=== PATIENT | female | born 1985 | race Two or more races ===

== ENCOUNTER 2016-06-10 18:37 | Emergency (ER) | payer MEDICAID, OTHER ==
[~2016-06-10] VITALS: Ht 160 cm; Wt 47.6 kg
[2016-06-10] MEDS ORDERED: SODIUM CHLORIDE 0.9% 1,000 ML IV ONE (19:47)
[2016-06-10] MEDS ORDERED: FAMOTIDINE (10MG/ML) 2ML VL IV ONE (20:00)
[2016-06-10 20:12] LABS: Basophils # (auto) 0 uL; Basophils % (auto) 0.4 % (0.0-2.0); Eosinophils # (auto) 0 uL; Eosinophils % (auto) 0.4 % (0.0-7.0); Hematocrit 42.5 % (36.0-46.0); Hemoglobin 14.1 g/dL (12.2-16.2); Lymphocytes # (auto) 1.4 uL; Lymphocytes % (auto) 14.2 % (10.0-50.0); Mean Corpuscular Hemoglobin 31.8 pg (28.0-32.0); Mean Corpuscular Hgb Conc. 33.2 g/dL (32.0-36.0); Mean Corpuscular Volume 95.9 fL (80.0-100.0); Mean Platelet Volume 8.6 fL (7.4-10.4); Monocytes # (auto) 0.5 uL; Monocytes % (auto) 5.4 % (0.0-12.0); Neutrophils % (auto) 79.6 % (37.0-80.0); Platelet Count (auto) 307 10^3/uL (140-450); Red Cell Distribution Width 15.4 % (11.6-16.0)
[2016-06-10 20:37] LABS: BUN/Creatinine Ratio 13.9; Calcium 8.8 mg/dL (8.5-10.1); Potassium 3.1 mmol/L (3.5-5.1)
[2016-06-10 20:40] LABS: Bilirubin, Total 0.3 mg/dL (0.2-1.0); Total Protein 7.1 g/dL (6.4-8.2)
[2016-06-10] MEDS ORDERED: ONDANSETRON HCL 4 MG/2 ML VIAL IV ONE (21:00)
[2016-06-10] MEDS ORDERED: PROMETHAZINE HCL 25 MG/ML 1ML IV ONE (23:45)
[2016-06-11 00:22] VITALS: BP 98/60
[2016-06-11] MEDS ORDERED: THIAMINE INJ 100 MG, MULTIPLE VITAMIN 10 ML, FOLIC ACID 1 MG, MAGNESIUM SULF SDV 50% 8 ... IV ONE ×5 (00:30)
== END 2016-06-11 00:30 | disposition home or self-care (01) ==
LOC: ER 18:40
DX: K29.00 Acute gastritis without bleeding (principal); F17.210 Nicotine dependence, cigarettes, uncomplicated; F12.10 Cannabis abuse, uncomplicated; F15.10 Other stimulant abuse, uncomplicated; F41.9 Anxiety disorder, unspecified
CPT/HCPCS: 36415; 74176; 80053; 80320; 83690; 85025; 96361; 96374; 96375; 99285; J2405; J2550; J3490; J7030

== ENCOUNTER 2016-12-10 18:42 | Emergency (ER) | payer MEDICAID | END 2016-12-10 20:24 | disposition left against medical advice (07) | LOC: ER 18:45 | DX: R51 Headache (principal); Z53.21 Procedure and treatment not carried out due to patient leaving prior to being seen by health care provider ==

== ENCOUNTER 2017-03-04 17:19 | Emergency (ER) | payer MEDICAID ==
[~2017-03-04] VITALS: Ht 157.5 cm; Wt 55.8 kg
[2017-03-04 17:45] VITALS: BP 120/61
[2017-03-04 17:59] LABS: Urine Bilirubin Negative (Negative); Urine Blood Negative /uL (Negative); Urine Color Yellow (Yellow); Urine Glucose Normal (Normal); Urine Ketone 4+ (Negative); Urine Mucus FEW (None Seen); Urine Nitrite Negative (Negative); Urine RBC <1 /hpf (0 - 4); Urine Squamous Epithelial Cell FEW /hpf (<5); Urine Urobilinogen Normal (Negative); Urine pH 5.5 (5.0-8.0)
== END 2017-03-05 01:54 | disposition left against medical advice (07) ==
LOC: EDBD 17:26 → ER 17:26
DX: N93.9 Abnormal uterine and vaginal bleeding, unspecified (principal); Z53.21 Procedure and treatment not carried out due to patient leaving prior to being seen by health care provider
CPT/HCPCS: 36415; 76805; 81001; 84702